=== PATIENT | female | born 1945 | race Caucasian/White ===

== ENCOUNTER → 2017-03-11 | Outpatient (CLI) | payer OTHER, MEDICARE | LOC: BMCIMAGING 16:06 | PROVIDERS: ATTEND Internal Medicine Rheumatology | DX: M19.041 Primary osteoarthritis, right hand (principal); M19.042 Primary osteoarthritis, left hand; H04.123 Dry eye syndrome of bilateral lacrimal glands; M19.90 Unspecified osteoarthritis, unspecified site; M54.5 Low back pain ==

== ENCOUNTER → 2017-11-11 | Outpatient (CLI) | payer OTHER, MEDICARE | LOC: SBRMNEURO 20:00 | PROVIDERS: ATTEND Psychiatry & Neurology Sleep Medicine | DX: G47.33 Obstructive sleep apnea (adult) (pediatric) (principal); G47.61 Periodic limb movement disorder ==

== ENCOUNTER 2018-08-20 05:42 | Day surgery (SDC) | payer OTHER, MEDICARE ==
[2018-08-20] MEDS ORDERED: LR 1,000 ML IV ONE (05:49)
[2018-08-20] MEDS ORDERED: cefOXitin SODIUM 2 GM in NS 100 ML IV ONE (06:00)
[2018-08-20] MEDS ORDERED: LIDOCAINE 1% 2 ML INJ ONE (06:00)
[2018-08-20] MEDS ORDERED: BUPIVACAINE 0.5% 30 ML SDV ONE (06:45)
[2018-08-20] MEDS ORDERED: HEPARIN 1000 UNIT/1 ML MDV ONE (06:45)
[2018-08-20] MEDS ORDERED: ceFAZolin 1 GM/5 ML SYR ONE (06:46)
--- NOTE | 2018-08-20 06:58 | PDANEPAE ---
ANE History of Present Illness lap [place] for cholelithiasis ANE Past Medical History - Cardiovascular History Hx Hypertension: Yes Hx Arrhythmias: Yes Hx Chest Pain: No Hx Coronary Artery / Peripheral Vascular Disease: Yes Hx CHF / Valvular Disease: Yes Hx Palpitations: No Cardiovascular History Comment: echo and cardiology eval on the chart - Pulmonary History Hx COPD: No Hx Asthma/Reactive Airway Disease: No Hx Recent Upper Respiratory Infection: No Hx Oxygen in Use at Home: No Hx Sleep Apnea: Yes Sleep Apnea Screening Result - Last Documented: Positive Pulmonary History Comment: ABHAY + - uses Cpap - Neurologic History Hx Cerebrovascular Accident: No Hx Seizures: No Hx Dementia: No Neurologic History Comment: had nerve stimulator placed for pain related to lumbar fusion - states hasn't turned it on for about a year, using hemp oil for pain - Endocrine History Hx Diabetes: No Endocrine History Comment: hypothyroid - Renal History Hx Renal Disorders: No - Liver History Hx Hepatic Disorders: No - Neurological & Psychiatric Hx Hx Neurological and Psychiatric Disorders: Yes Neurological / Psychiatric History Comment: mild depression - Cancer History Hx Cancer: No - Congenital Disorder History Hx Congenital Disorders: No - GI History Hx Gastrointestinal Disorders: Yes Gastrointestinal History Comment: hx of bowel obstruction - Other Health History Other Health History: wears glasses - Chronic Pain History Chronic Pain: Yes (low back, legs - uses hemp oil) - Surgical History Prior Surgeries: heart ablation. AVR. several abdominal exploration surgeries. back surgery - lumbar fusion. low back pain stimulator placement. carpel tunnel. c-sections x3. hysterectomy. small bowel surgery. tonsillectomy ANE Review of Systems Review of Systems: - Exercise capacity METS (RN): 4 METS ANE Patient History - Allergies Allergies/Adverse Reactions: No Known Allergies Allergy (Unverified 08/19/18 11:55) - Home Medications Home medications: home medication list seen and reviewed Home Medications: Acyclovir PRN 08/19/18 [Last Taken 07/21/18] Adults Multivitamin Tablet 08/19/18 [Last Taken 08/19/18] Ambien 08/19/18 [Last Taken 08/19/18] Bentyl 10 MG (*) 08/19/18 [Last Taken Unknown] Cinnamon Bark 08/19/18 [Last Taken 08/19/18] Eliquis 08/19/18 [Last Taken 08/18/18] FLUoxetine 08/19/18 [Last Taken 08/19/18] Fish Oil [place]-3 Softgel 08/19/18 [Last Taken 08/19/18] Gabapentin 08/19/18 [Last Taken 08/19/18] Lisinopril 08/19/18 [Last Taken 08/19/18] Synthroid 08/19/18 [Last Taken 08/19/18] Tylenol 08/19/18 [Last Taken 08/19/18] Zyrtec 08/19/18 [Last Taken 08/19/18] - NPO status NPO Status: no food or drink >8 hours NPO Since - Liquids (Date): 08/20/18 NPO Since - Liquids (Time): 02:30 NPO Since - Solids (Date): 08/19/18 NPO Since - Solids (Time): 18:30 - Anes Hx Anes Hx: no prior problems - Smoking Hx Smoking Status: Former smoker Marijuana use: No - Alcohol Use Alcohol Use: Rarely - Family Anes Hx Family Anes Hx: none Family Hx Anesthesia Complications: none ANE Labs/Vital Signs - Labs - CBC WBC: pending - Vital Signs Blood Pressure: 147/71 Heart Rate: 65 Respiratory Rate: 16 O2 Sat (%): 94 Height: 154.94 cm Weight: 66.224 kg ANE Physical Exam - Airway Neck exam: FROM Mallampati Score: Class 2 Mouth exam: normal dental/mouth exam - Pulmonary Pulmonary: no respiratory distress - Cardiovascular Cardiovascular: regular rate and rhythym - ASA Status ASA Status: III ANE Anesthesia Plan Anesthesia Plan: general endotracheal anesthesia
[2018-08-20 07:04] LABS: PLATELET COUNT 144 10^3/uL (150-400)
--- NOTE | 2018-08-20 07:10 | PDHPUP ---
History & Physical Update H&P update statement: This history and physical update is based on an assessment of the patient which was completed after admission or registration (within 24 hours), but prior to the surgery/procedure. H&P update: H&P reviewed & patient examined, no change in patient's condition since H&P completed
[2018-08-20] MEDS ORDERED: DEXAMETHASONE 4 MG/ML VIAL ONE ×2 (07:24)
[2018-08-20] MEDS ORDERED: LIDOCAINE 2% 100 MG/5 ML SYR ONE (07:24)
[2018-08-20] MEDS ORDERED: PROPOFOL/EMULSION 500 MG/50 ML BOTTLE IV ONE (07:24)
[2018-08-20] MEDS ORDERED: ONDANSETRON 4 MG/2 ML VIAL ONE (07:24)
[2018-08-20] MEDS ORDERED: ROCURONIUM 50 MG/5 ML VIAL ONE (07:24)
[2018-08-20] MEDS ORDERED: fentaNYL 100 MCG/2 ML INJ ONE ×2 (07:24→09:12)
[2018-08-20] MEDS ORDERED: LIDOCAINE HCL 160 MG/4 ML LTA KIT TP ONE (07:25)
[2018-08-20] MEDS ORDERED: LABETALOL HCL 5 MG/ML 20 ML MDV IVP PRN (08:16)
[2018-08-20] MEDS ORDERED: ONDANSETRON 4 MG/2 ML VIAL IVP PRN (08:16)
[2018-08-20] MEDS ORDERED: HYDROCODONE/APAP 5/325 TAB PO PRN (08:16)
[2018-08-20] MEDS ORDERED: LR 500 ML IV PRN (08:16)
[2018-08-20] MEDS ORDERED: MEPERIDINE 25 MG/0.5 ML AMP IVP PRN (08:16)
[2018-08-20] MEDS ORDERED: ALBUTEROL 3 ML DEYVIAL IH PRN (08:16)
[2018-08-20] MEDS ORDERED: PHENYLEPHRINE HCL 100 MCG/ML SYR IVP PRN (08:16)
[2018-08-20] MEDS ORDERED: oxyCODONE IR 5 MG TAB PO PRN (08:16)
[2018-08-20] MEDS ORDERED: DEXAMETHASONE 4 MG/ML VIAL IVP PRN (08:16)
[2018-08-20] MEDS ORDERED: METOCLOPRAMIDE 10 MG/2 ML VIAL IVP PRN (08:16)
[2018-08-20] MEDS ORDERED: NALOXONE HCL 0.4 MG/ML INJ IVP PRN (08:16)
[2018-08-20] MEDS ORDERED: PROMETHAZINE HCL 25 MG/ML INJ IVP PRN (08:16)
[2018-08-20] MEDS ORDERED: ACETAMINOPHEN 500 MG TAB PO PRN (08:16)
[2018-08-20] MEDS ORDERED: NEOSTIGMINE METHYLSULFATE 5 MG/5 ML SYR ONE (08:22)
--- NOTE | 2018-08-20 08:37 | POSTOPPROG ---
Post Op Note Date of Operation: 08/20/18 Surgeon: Abhijeet Stone Greige Good[employer] Inspector: Mary Anesthesiologist: Teo Anesthesia: GET(General Endotracheal) Pre-op Diagnosis: Abdominal pain, cholelithiasis Post-op Diagnosis: cholelithiasis Indication: pain Procedure: Lap [place] Findings: Multiple stones, inflammation, adhesions Inf/Abcess present in the surg proc area at time of surgery?: No Depth: Organ Space EBL: Minimal Specimen(s): Gallbladder
[2018-08-20] MEDS: fentaNYL 100 MCG/2 ML INJ IVP PRN ×2 (09:00→09:15)
--- NOTE | 2018-08-20 10:12 | POSTANESTH ---
Post Anesthetic Evaluation Cardiovascular Status: Normal, Stable Respiratory Status: Normal, Stable Level of Consciousness/Mental Status: Can Participate in Eval Pain Control: Adequate, Prn Tx Ordered Nausea/Vomiting Control: Adequate, Prn Tx Ordered Complications Possibly Related to Anesthesia: None Noted
[2018-08-20] MEDS ORDERED: HYDROCODONE/APAP 5/325 TAB ONE (12:01)
[2018-08-20 12:07] VITALS: BP 115/60
--- NOTE | 2018-08-22 07:22 | GOP ---
DATE OF OPERATION: 08/20/2018 SURGEON: Abhijeet Stone MD [employer] RECEPTIONIST: Martha Hernandez NP. ANESTHESIOLOGIST: Marcell Bruce MD. PREOPERATIVE DIAGNOSIS: Symptomatic cholelithiasis. POSTOPERATIVE DIAGNOSIS: Symptomatic cholelithiasis. PROCEDURE PERFORMED: Laparoscopic cholecystectomy. FINDINGS: The patient was found to have a markedly distended gallbladder with small ducts, and multi ple gallstones. She did have extensive intraabdominal adhesions from her previous multiple surgeries . DESCRIPTION OF PROCEDURE: The patient was taken to the operating room where she received a satisfact ory general endotracheal anesthesia by Dr. Bruce. She was placed in the supine position, prepped and draped in usual sterile fashion. Short incision was made in epigastrium through a previous old scar , cutdown was made on the fascia, and the peritoneum was incised, and a trocar was introduced. Pneum operitoneum was established. Adequate visualization was present. Multiple adhesions were encountere d. A second trocar was placed under direct vision. Some adhesions were taken directly with electroc autery, and then 2 other trocars were eventually able to be placed under direct vision. The gallblad janneth then could be elevated up. The cystic triangle was carefully dissected free. The cystic duct an d cystic artery were isolated with care to avoid injury to the common bile duct. Both structures wer e multiply hemoclipped and divided. The peritoneum of the gallbladder was incised. The gallbladder was dissected free from the bed of the hepatic fossa and extracted through the upper midline port sit e. Hemostasis was assured. The wound was irrigated. Trocars were removed under direct vision. Tro car sites were closed with 0 Vicryl for the fascia and 4-0 Monocryl subcuticular stitch for the skin. All layers infiltrated with 0.5% Marcaine. Blood loss was negligible. Taken to recovery room in g ood condition. /[id number]/MODL
== END 2018-08-20 12:08 | disposition home or self-care (01) ==
LOC: FSGY 05:42 → UNDOADMOB 05:42 → F3E 05:42 → EDSTATUS 07:15 → UNDODISOB 12:08 → FSGY 12:08
PROVIDERS: ATTEND Surgery
PROC: 0FT44ZZ Resection of Gallbladder, Percutaneous Endoscopic Approach (ICD-10-PCS; principal; 2018-08-20 07:15)
DX: K80.20 Calculus of gallbladder without cholecystitis without obstruction (principal); I25.10 Atherosclerotic heart disease of native coronary artery without angina pectoris; Z86.73 Personal history of transient ischemic attack (TIA), and cerebral infarction without residual deficits
CPT/HCPCS: J0694; J1100; J2001; J2270; J2405; J2704; J2710; J3010